=== PATIENT | female | born 1970 | race Caucasian/White ===

== ENCOUNTER → 2016-11-21 | Outpatient (CLI) | payer BC ==
[~2016-11-21] MED LIST: BIRTH CONTROL; CILOXAN 5 ML5 M1 OP; CILOXAN 5 ML5 ML OT; DIOVAN80 MG PO; FLEXERIL10 MG PO; HYDROCODONE BIT1 T11 PO; TOPROL XL25 MG PO; TRAMADOL HCL50 MG PO; VICO10300 PO; VICO75300 PO; WELLBUTRIN75 MG PO; ZOFRAN ODT4 MG SL
[2016-11-21 10:51] LABS: HEMATOCRIT 39.1 % (37.0-47.0); HEMOGLOBIN 12.4 g/dl (12.0-16.0); MEAN CELL VOLUME 93.5 fl (81.0-99.0); RED BLOOD COUNT 4.18 10*6/uL (4.10-5.10)
[2016-11-21 10:52] LABS: MEAN CORPUSCULAR HGB 29.7 pg (27.0-31.0); MEAN CORPUSCULAR HGB CONC 31.7 g/dl (33.0-37.0); MEAN PLATELET VOLUME 8.6 fl (9.6-12.3); RED CELL DISTRI WIDTH 12.4 % (0-14.5)
[2016-11-21 11:25] LABS: ALBUMIN 3.3 gm/dl (3.1-4.5); ALKALINE PHOSPHATASE 51 U/L (45-117); BILIRUBIN, TOTAL 0.3 mg/dl (0.2-1.0); BUN 18 mg/dl (7-24); CARBON DIOXIDE 27 mmol/L (21-32); CHLORIDE 104 mmol/L (98-107); CHOLESTEROL 192 mg/dL (<200); EST GLOM FILT AFRICAN AMERICAN > 60 ml/min; GLUCOSE 98 mg/dL (65-99); HDL CHOLESTEROL 66 mg/dl (40-60); LDL CHOLESTEROL 99 mg/dL (9-159); SGOT/AST 14 IU/L (3-35); SGPT/ALT 17 U/L (12-78); SODIUM 141 mmol/L (136-145); TOTAL PROTEIN 6.7 gm/dL (6.4-8.2); TRIGLYCERIDES 133 mg/dl (<150); VLDL CHOLESTEROL 27 mg/dL (6-40)
== END | disposition home or self-care (01) ==
LOC: LAB 10:28
PROVIDERS: Family Medicine
DX: I10 Essential (primary) hypertension (principal); F41.1 Generalized anxiety disorder; E74.00 Glycogen storage disease, unspecified; E66.9 Obesity, unspecified; E78.00 Pure hypercholesterolemia, unspecified; M19.90 Unspecified osteoarthritis, unspecified site; R63.5 Abnormal weight gain; E55.9 Vitamin D deficiency, unspecified

== ENCOUNTER → 2016-12-10 | Day surgery (SDC) | payer BC ==
[~2016-12-10] VITALS: Ht 167.6 cm; Wt 113.4 kg
[~2016-12-10] MED LIST changes: +AMBIEN10 M1 JT; +CYCLOBENZAPRINE10 MG PO; +DIOVAN160 M2 PO; +ETODOLAC400 M2 PO; +HYDR25T PO; +LEVAQUIN500 M2 PO; +NORCO 10-325 T1 EACH PO; +PROTONIX40 MG PO; +QSYMIA 3.75 MG1 EACH PO
--- NOTE | ~2016-12-10 | O ---
[place], [place] OPERATIVE NOTE NAME: ISABEL PALACIOS UNIT #: [id number] ROOM: DOCTOR: JAIRO AVELAR MD BIRTHDATE: [birth year] DOS: 12/10/2016 PREOPERATIVE DIAGNOSIS: Chronic otitis media with effusion. POSTOPERATIVE DIAGNOSIS: Chronic otitis media with effusion. OPERATION: BMT. SURGEON: Dr. Avelar. ANESTHESIA: General. OPERATIVE FINDINGS AND PROCEDURE: The patient was taken to the operating room for BMT. Following induction of general anesthesia, the patient was positioned supine on the OR table and draped in the standard fashion for ear surgery. The surgical microscope was brought into the operative field. The right ear was examined. Myringotomy was performed. Standard Freddy tympanostomy tube was inserted, and topical Ciprofloxacin drops were instilled. Next, the left ear was examined. Left myringotomy was performed. Standard Freddy tympanostomy tube was inserted, and topical Ciprofloxacin drops were instilled. The patient tolerated the procedure well, was awakened, and transported to PACU in satisfactory condition. JAIRO AVELAR MD CM:OPRECORD:OPERATIVE NOTE [id number] JAIRO AVELAR MD 12/10/16 1309 interface
[2016-12-10 11:46] VITALS: BP 112/60
[2016-12-10 12:45] VITALS: BP 116/62
[2016-12-10 13:00] VITALS: BP 123/61
[2016-12-10 13:15] VITALS: BP 123/61
[2016-12-10 13:18] VITALS: BP 123/61
[2016-12-10 13:30] VITALS: BP 113/64
== END | disposition home or self-care (01) ==
LOC: SDC 12-05 08:45
DX: H65.493 Other chronic nonsuppurative otitis media, bilateral (principal); I10 Essential (primary) hypertension; F41.9 Anxiety disorder, unspecified; F32.9 Major depressive disorder, single episode, unspecified; Z87.01 Personal history of pneumonia (recurrent); Z83.3 Family history of diabetes mellitus; Z80.9 Family history of malignant neoplasm, unspecified

== ENCOUNTER → 2017-07-07 | Outpatient (CLI) | payer BC ==
[2017-07-07 12:09] LABS: BUN 12 mg/dl (7-24); CHLORIDE 102 mmol/L (98-107); CHOLESTEROL 187 mg/dL (<200); CREATININE 0.91 mg/dL (0.55-1.02); POTASSIUM 3.7 mmol/L (3.5-5.1); SODIUM 139 mmol/L (136-145); TRIGLYCERIDES 85 mg/dl (<150); VLDL CHOLESTEROL 17 mg/dL (6-40)
[2017-07-07 12:19] LABS: HDL CHOLESTEROL 62 mg/dl (40-60); LDL CHOLESTEROL 108 mg/dL (9-159)
== END | disposition home or self-care (01) ==
LOC: LAB 11:23
PROVIDERS: Family Medicine
DX: I10 Essential (primary) hypertension (principal)

== ENCOUNTER 2017-08-11 22:31 | Inpatient (IN) | payer BC ==
[~2017-08-11] VITALS: Ht 165.1 cm; Wt 114.9 kg
--- NOTE | ~2017-08-11 | O ---
[place], [place] OPERATIVE NOTE NAME: ISABEL PALACIOS [id number] UNIT #: [id number] ROOM: [id number] DOCTOR: BERRY FULLER MD BIRTHDATE: [birth year] DOS: 08/12/2017 PREOPERATIVE DIAGNOSIS: Acute cholecystitis. POSTOPERATIVE DIAGNOSIS: Acute cholecystitis. PROCEDURE: Laparoscopic cholecystectomy. SURGEON: Berry Fuller MD INFORMATION SECURITY ARCHITECT: DAMIEN. ANESTHESIA: GET. INDICATIONS: This is a 46-year-old lady admitted with abdominal pain and was found to have acute cholecystitis. We decided to take the patient to the operating room for a laparoscopic cholecystectomy. The procedure and its complications were explained to the patient in detail preoperatively. Complications that were discussed included but were not limited to bleeding, infection, hematoma/seroma/abscess formation, prolonged postoperative pain, damage to underlying vital structures, inadvertent injury to the common bile duct, biloma formation and incisional hernia formation. She agreed to proceed. DESCRIPTION OF PROCEDURE: After identifying the patient, the patient was brought to the operating suite and laid in the supine position. After induction of general anesthesia, the parts were painted and draped in the usual sterile fashion and a time-out procedure was called. An incision was made below the umbilicus in a transverse fashion. The skin and subcutaneous tissue were incised in the line of the incision. The fascia was incised vertically and 2 stay sutures with 0 Vicryl were taken on either side. The peritoneum was opened and a 12 mm Elmer port was introduced. A pneumoperitoneum was created. Under direct vision, an epigastric incision of 10 mm and two 5 mm incisions were made in the right upper quadrant and appropriate size ports were introduced. The gallbladder was found to be extremely distended and therefore approximately 80 mL of bile was aspirated in order to better grasp the gallbladder. The gallbladder was then retracted superiorly and laterally. The cystic artery and the cystic duct were meticulously dissected until the critical view of safety was obtained and the triangle of Calot was clearly identified. Thereafter, each of these structures were clipped 3 times and cut between the first and the second clip. The gallbladder was then removed from the bed of the gallbladder and removed from the peritoneal cavity in an EndoCatch bag and sent for histopathological diagnosis. Hemostasis was achieved in the liver bed and saline was used for irrigation. After hemostasis was confirmed, the right upper quadrant and epigastric ports were removed and there was no bleeding seen. The umbilical port was also removed and the pneumoperitoneum was decompressed. Two stay sutures were tied together and additional sutures were taken with 0 Vicryl in order to close the fascial defect. Thereafter, the edges of the skin were infiltrated with 1% plain lidocaine and the edges of the skin were approximated with the help of 4-0 Vicryl in a subcuticular running fashion. Dressings were placed. The patient tolerated the procedure well and was taken to the recovery [place], [place] OPERATIVE NOTE NAME: ISABEL PALACIOS UNIT #: [id number] ROOM: [facility] DOCTOR: BERRY FULLER MD BIRTHDATE: [birth year] room in a stable fashion. Dr. Berry Fuller, the attending surgeon, was present throughout the operating case. Berry Fuller MD CM:OPRECORD:OPERATIVE NOTE [id number] BERRY FULLER MD 08/12/17 1441 interface
--- NOTE | 2017-08-11 09:00 | NUR ---
case mangement visits with patient, patient states she lives at home, is independent in adls and ambulation, patient states she will be going back home when able and denies any home needs
[2017-08-11 22:31] VITALS: BP 140/65
[~2017-08-11 22:31] MED LIST changes: -AMBIEN10 M1 JT; +AMBIEN10 M1 PO
[2017-08-11 22:45] VITALS: BP 140/65
--- NOTE | 2017-08-11 22:59 | NUR ---
PATIENT YELLING AND SCREAMING, HYPERVENTILATING, COMPLAINING OF NUMBNESS.
[2017-08-11 23:00] LABS: HEMATOCRIT 41.7 % (37.0-47.0); HEMOGLOBIN 13.6 g/dl (12.0-16.0); LYMPH # 1.2 10*3/uL (1.3-4.4); LYMPH % 34.6 % (27.0-41.0); MEAN CELL VOLUME 88.7 fl (81.0-99.0); MEAN CORPUSCULAR HGB 28.9 pg (27.0-31.0); MEAN CORPUSCULAR HGB CONC 32.6 g/dl (33.0-37.0); MEAN PLATELET VOLUME 8.8 fl (9.6-12.3); MONO % 0.9 % (3.0-9.0); NEUT # 2.2 10*3/uL (2.3-7.9); NEUT % 64.2 % (47.0-73.0); PLATELET COUNT AUTOMATED 421 10*3/uL (130-400); RED CELL DISTRI WIDTH 12.1 % (0-14.5); WHITE BLOOD COUNT 3.4 10*3/uL (4.8-10.8)
[2017-08-11 23:06] VITALS: BP 118/77
[2017-08-11 23:10] LABS: ACT PARTIAL THROMBO TIME 19.1 SECONDS (20.8-31.5); INTERNATIONAL NORM RATIO 0.9 (2.0-3.5)
[2017-08-11 23:15] LABS: ALKALINE PHOSPHATASE 52 U/L (45-117); BUN 19 mg/dl (7-24); CHLORIDE 101 mmol/L (98-107); SGOT/AST 16 IU/L (3-35); SGPT/ALT 26 U/L (12-78); SODIUM 139 mmol/L (136-145); TOTAL PROTEIN 8.2 gm/dL (6.4-8.2)
[2017-08-11 23:17] LABS: TROPONIN I < 0.015 ng/ml (<0.045)
--- NOTE | 2017-08-11 23:39 | NUR ---
PT MEDICATED PER EMAR. 98% ON 3 L NC. RESP 16 BP. 144/81
[2017-08-11 23:40] VITALS: BP 144/81
[2017-08-12] VITALS (13 sets, daily range): BP systolic 101–153; BP diastolic 46–89
--- NOTE | 2017-08-12 00:33 | NUR ---
PT RATES PAIN 4 OUT OF 10 AFTER NARCOTIC ADM
--- NOTE | 2017-08-12 03:04 | NUR ---
REPORT GIVEN TO RAHUL GARCIA
--- NOTE | 2017-08-12 03:50 | NUR ---
A 46, admitted to , under the services of KAYLEE Daniels DO with a diagnosis of CHEST PAIN IN ADULT AND CHOLELITHIASIS. Chief complaint is CHEST PAIN. Patient arrived via bed from ER. Monitor applied. Initial assessment completed. Vital signs taken and recorded. KAYLEE DANIELS DO notified of admission to the unit. Orders received. See assessment for past medical history, medications and allergies. Patient and/or family oriented to unit. [facility] visitation policy reviewed. Clothing/patient valuable form completed. RAHUL OCHOA
--- NOTE | 2017-08-12 04:12 | NUR ---
PT C/O PAIN. MORPHINE ADMINISTERED VIA IV. WILL MONITOR FOR EFFECTIVENESS.
--- NOTE | 2017-08-12 04:20 | NUR ---
DR. VALDERRAMA NOTIFIED THAT PT MED REC IS UP TO DATE TO BEST OF ABILITY AT THIS TIME.
--- NOTE | 2017-08-12 05:00 | NUR ---
MORPHINE EFFECTIVE AT THIS TIME, PT RESTING IN BED, RESPIRATIONS EASY AND UNLABORED.
[2017-08-12 06:08] LABS: ALBUMIN 3.1 gm/dl (3.1-4.5); CREATININE 1.43 mg/dL (0.55-1.02); PHOSPHOROUS 2.4 mg/dL (2.5-4.9); POTASSIUM 3.2 mmol/L (3.5-5.1)
[2017-08-12 06:10] LABS: TOTAL PROTEIN 6.1 gm/dL (6.4-8.2)
[2017-08-12 06:28] LABS: ACT PARTIAL THROMBO TIME 20.4 SECONDS (20.8-31.5)
--- NOTE | 2017-08-12 06:30 | NUR ---
PT C/O NAUSEA. IV ZOFRAN ADMINISTERED, TOLERATED WELL. WILL MONITOR FOR EFFECTIVENESS.
[2017-08-12 06:44] LABS: MEAN CELL VOLUME 91.3 fl (81.0-99.0); MEAN CORPUSCULAR HGB 29.9 pg (27.0-31.0); MEAN CORPUSCULAR HGB CONC 32.7 g/dl (33.0-37.0); MEAN PLATELET VOLUME 9.2 fl (9.6-12.3); PLATELET COUNT AUTOMATED 337 10*3/uL (130-400); RED BLOOD COUNT 3.68 10*6/uL (4.10-5.10); RED CELL DISTRI WIDTH 12.3 % (0-14.5); WHITE BLOOD COUNT 19.4 10*3/uL (4.8-10.8)
--- NOTE | 2017-08-12 06:45 | NUR ---
PT C/O PAIN AT THIS TIME, PT BEING VERY VOCAL AND CRYING OUT. PT STATES THAT PAIN IS ALL OVER BODY AND THAT SHE NEEDS SOMETHING ELSE TO HELP WITH HER PAIN.
[2017-08-12 06:56] LABS: HEMATOCRIT 33.6 % (37.0-47.0)
[2017-08-12 07:30] LABS: PLATELET SUFFICIENCY NORMAL (NORMAL); TOTAL CELLS COUNTED 100 #CELLS
--- NOTE | 2017-08-12 07:30 | NUR ---
ZOFRAN EFFECTIVE PER PT.
--- NOTE | 2017-08-12 07:44 | NUR ---
CALLED DR CHEEK REGARDING NEW PT CONSULT. ORDER RECIEVED FOR IV DULAUDID. HE STATED HE WILL SEE PT TODAY.
--- NOTE | 2017-08-12 08:00 | NUR ---
PT AWAKE. ASSESSMENT COMPLETE. PT WRITHING IN PAIN AND YELLING. ADMINISTERED IV DILAUDID, ICE CHIPS AND A COLD WASHCLOTH. WILL MONITOR FOR EFFECTIVENESS.
--- NOTE | 2017-08-12 08:57 | NUR ---
PT SLEEPING. RESPS REG/EASY WITH NO DISTRESS NOTED AT THIS TIME.
--- NOTE | 2017-08-12 10:15 | NUR ---
DR CHEEK IN TO SEE PT. INFORMED OF PTS ELEVATED TEMP AND THAT THIS NURSE MEDICATED WITH TYLENOL. WILL RECHECK
--- NOTE | 2017-08-12 10:45 | NUR ---
PTS TEMP 99.4
--- NOTE | 2017-08-12 13:33 | NUR ---
PT BEING TRANSFERRED TO ICU. REPORT GIVEN TO DONNELL GARCIA.
--- NOTE | 2017-08-12 15:20 | NUR ---
PATIENT FROM OR. VSS. PATIENT VERY ANXIOUS. BP 105/62. 96% 3L NC.
--- NOTE | 2017-08-12 17:44 | NUR ---
MEDICATED WITH PRN DILAUDID PER ORDER AND REQUEST FOR ABDOMINAL PAIN RATED AT 10 OUT OF 10.
--- NOTE | 2017-08-12 19:53 | NUR ---
PATIENT C/O ITCHING. MEDICATED WITH ONE TIME DOSE OF BENADRYL. NO SIGNS OF RASH. WILL MONITOR FOR EFFECTIVENESS.
[2017-08-12 20:06] LABS: BILIRUBIN NEGATIVE (NEGATIVE); BLOOD 1+ (NEGATIVE); CLARITY SL CLOUDY (CLEAR); COLOR YELLOW (YELLOW); GLUCOSE TRACE (NEGATIVE); KETONE NEGATIVE (NEGATIVE); LEUKO ESTERASE NEGATIVE (NEGATIVE); NITRITE NEGATIVE (NEGATIVE); UROBILINOGEN 0.2 E.U./dl (0.2-1.0)
[2017-08-12 20:16] LABS: BACTERIA 2+; WBC 0-2 wbc/hpf (0-5)
--- NOTE | 2017-08-12 20:38 | NUR ---
Patient complaints of 8/10 pain to abdomen,legs, back and neck. Medicated with PRN dilaudid as ordered and per pateint request. Patients Spo2 dropped into the 80's after Dilaidid administration. O2 2L applied. Spo2 currently 96%.
--- NOTE | 2017-08-12 20:58 | NUR ---
PATIENT ASLEEP. NO SIGNS OF ITCHING OR PAIN. DILAUDID AND BENADRYL EFFECTIVE.
--- NOTE | 2017-08-12 22:41 | NUR ---
C/O 04/10 ABDOMINAL PAIN. MEDICATED WITH DILAUDID ORDERED.
--- NOTE | 2017-08-12 23:41 | NUR ---
PATIENT ASLEEP. NO SIGNS OF PAIN. DILAUDID EFFECTIVE.
--- NOTE | 2017-08-12 23:50 | NUR ---
24 HR chart check completed.
[2017-08-13] VITALS: BP 100/48
--- NOTE | 2017-08-13 00:49 | NUR ---
C/O 04/10 ABDOMINAL PAIN. MEDICATED WITH DILAUDID ORDERED AND PER PATIENT REQUEST.
--- NOTE | 2017-08-13 01:30 | NUR ---
PATIENT ASLEEP. NO SIGNS OF PAIN. DILAUDID EFFECTIVE.
--- NOTE | 2017-08-13 02:50 | NUR ---
C/O 04/10 ABDOMINAL PAIN. MEDICATED WITH DILAUDID ORDERED AND PER PATIENT REQUEST.
--- NOTE | 2017-08-13 03:15 | NUR ---
PATIENT ASLEEP. NO SIGNS OF PAIN. DILAUDID EFFECTIVE.
[2017-08-13 04:00] VITALS: BP 91/47
--- NOTE | 2017-08-13 05:26 | NUR ---
C/O 8/10 PAIN TO ABDOMEN AND NECK. MEDICATED WITH PRN DILAUDID ORDERED AND PER PATIENT REQUEST.
[2017-08-13 06:13] LABS: ALBUMIN 2.9 gm/dl (3.1-4.5); CHLORIDE 103 mmol/L (98-107); POTASSIUM 3.3 mmol/L (3.5-5.1); SODIUM 137 mmol/L (136-145)
[2017-08-13 06:20] LABS: ALKALINE PHOSPHATASE 37 U/L (45-117); CREATININE 0.96 mg/dL (0.55-1.02); PHOSPHOROUS 2.1 mg/dL (2.5-4.9); SGOT/AST 29 IU/L (3-35); SGPT/ALT 27 U/L (12-78); TOTAL PROTEIN 6.2 gm/dL (6.4-8.2)
[2017-08-13 06:21] LABS: BUN 12 mg/dl (7-24)
--- NOTE | 2017-08-13 06:21 | NUR ---
PATIENT ASLEEP. NO SIGNS OF PAIN. DILAUDID EFFECTIVE.
[2017-08-13 07:55] LABS: HEMATOCRIT 31.1 % (37.0-47.0); HEMOGLOBIN 9.9 g/dl (12.0-16.0); MEAN CELL VOLUME 92.3 fl (81.0-99.0); MEAN CORPUSCULAR HGB 29.4 pg (27.0-31.0); MEAN CORPUSCULAR HGB CONC 31.8 g/dl (33.0-37.0); MEAN PLATELET VOLUME 9.2 fl (9.6-12.3); PLATELET COUNT AUTOMATED 300 10*3/uL (130-400); RED BLOOD COUNT 3.37 10*6/uL (4.10-5.10); RED CELL DISTRI WIDTH 12.6 % (0-14.5); WHITE BLOOD COUNT 20.4 10*3/uL (4.8-10.8)
[2017-08-13 08:00] VITALS: BP 98/59
[2017-08-13 08:29] LABS: PLATELET SUFFICIENCY NORMAL (NORMAL); POLYCHROMASIA SLIGHT; TOTAL CELLS COUNTED 100 #CELLS
--- NOTE | 2017-08-13 09:09 | NUR ---
MEDICATED WITH PRN DILAUDID PER ORDER AND REQUEST.
--- NOTE | 2017-08-13 10:00 | NUR ---
DILAUDID EFFECTIVE. DR. CHEEK HAS ROUNDED.
--- NOTE | 2017-08-13 11:10 | NUR ---
MEDICATED WITH PRN BENADRYL FOR C/O ITCHING.
--- NOTE | 2017-08-13 11:24 | NUR ---
MEDICATED WITH PRN PERCOCET PER ORDER AND REQUEST. DR. QUINTERO HAS ROUNDED.
[2017-08-13 12:00] VITALS: BP 106/52
[2017-08-13 16:00] VITALS: BP 104/56
--- NOTE | 2017-08-13 16:06 | NUR ---
MEDICATED WITH PRN TYLENOL FOR C/O HEADACHE.
--- NOTE | 2017-08-13 19:10 | NUR ---
MEDICATED WITH PRN PERCOCET PER ORDER AND REQUEST.
--- NOTE | 2017-08-13 19:52 | NUR ---
PATIENT LYING IN BED, STATED SHE HURTS ALL OVER, STATED SHE WENT TO [facility] PRIOR TO ADMISSION TO HELP WITH LEGS GOING NUMB AND NECK PAIN. PATIENT STATED THAT THE PERCOCET WASNT HELPING THAT WAS GIVEN AT 1910. PATIENT STATED THAT TORADOL HELPS, WHICH SHE ISNT GETTING. PATIENT ASKED FOR SOMETHING TO HELP HER SLEEP WHICH WILL BE GIVEN AT A LATER TIME. PATIENT LEFT WITH CALL LIGHT IN REACH.
[2017-08-13 20:00] VITALS: BP 105/60
--- NOTE | 2017-08-13 20:49 | NUR ---
PATIENT COMPLAINS OF NAUSEA AND HEADACHE. TYLENOL AND ZOFRAN GIVEN. WILL MONITOR AND REASSESS.
--- NOTE | 2017-08-13 22:30 | NUR ---
PATIENT IN SEVERE PAIN, RATES 10/10, STATES ITS HARD FOR HER TO MOVE DUE TO LAP CHOLY. DILAUDID WAS GIVEN. WILL MONITOR AND REASSESS.
--- NOTE | 2017-08-13 23:45 | NUR ---
PATIENT RESTING, NO SIGNS OF DISTRESS. DILAUDID EFFECTIVE.
[2017-08-14] VITALS: BP 97/51
[2017-08-14 04:00] VITALS: BP 127/71
--- NOTE | 2017-08-14 04:00 | NUR ---
PATIENT AWOKE IN SEVERE PAIN, STATED THE PAIN MEDS MUST OF WORE OFF. PATIENT HAS COMPLAINT OF BACK PAIN AND SURGICAL PAIN. PERCOCET WAS GIVEN. WILL MONITOR AND REASSESS.
--- NOTE | 2017-08-14 06:10 | NUR ---
PATIENT SCREAMING OUT IN PAIN, STATES HER HEAD, STOMACH, AND BACK ARE HURTING. RATES 10/10. DILAUDID GIVEN, WILL MONITOR AND REASSESS. PERCOCET NOT EFFECTIVE FOR PAIN.
[2017-08-14 06:13] LABS: BASO % 0.1 % (0.0-1.0); EOS # 0.4 10*3/uL (0.0-0.4); EOS % 4.2 % (1.0-4.0); HEMATOCRIT 30.5 % (37.0-47.0); HEMOGLOBIN 9.5 g/dl (12.0-16.0); LYMPH # 1.5 10*3/uL (1.3-4.4); MEAN CELL VOLUME 93.6 fl (81.0-99.0); MEAN CORPUSCULAR HGB 29.1 pg (27.0-31.0); MEAN CORPUSCULAR HGB CONC 31.1 g/dl (33.0-37.0); MEAN PLATELET VOLUME 8.8 fl (9.6-12.3); MONO # 0.7 10*3/uL (0.1-1.0); MONO % 6.6 % (3.0-9.0); NEUT # 7.3 10*3/uL (2.3-7.9); NEUT % 73.8 % (47.0-73.0); PLATELET COUNT AUTOMATED 236 10*3/uL (130-400); RED BLOOD COUNT 3.26 10*6/uL (4.10-5.10); RED CELL DISTRI WIDTH 12.7 % (0-14.5); WHITE BLOOD COUNT 9.9 10*3/uL (4.8-10.8)
[2017-08-14 06:26] LABS: ALBUMIN 2.6 gm/dl (3.1-4.5); ALKALINE PHOSPHATASE 34 U/L (45-117); BUN 8 mg/dl (7-24); CHLORIDE 108 mmol/L (98-107); CREATININE 0.76 mg/dL (0.55-1.02); PHOSPHOROUS 1.8 mg/dL (2.5-4.9); POTASSIUM 3.7 mmol/L (3.5-5.1); SGOT/AST 22 IU/L (3-35); SGPT/ALT 25 U/L (12-78); SODIUM 142 mmol/L (136-145); TOTAL PROTEIN 5.7 gm/dL (6.4-8.2)
[2017-08-14 08:00] VITALS: BP 118/67
--- NOTE | 2017-08-14 09:32 | NUR ---
IV to RA leaking at site. dc'd. in, discharge recommended.
--- NOTE | 2017-08-14 10:44 | NUR ---
Awake and alert. Up and about in room . Tylenol effective to ease headache. IV site to RA edematous , painful and leaking on start of abx. Pt. stated she notified previous shift of pain at site. forearm is firm and painful. IV dc'd. Not re-started at this time as discharge is pending. Pt. is released per surgeon w/ no follow up required.
[2017-08-14] MEDS ORDERED: Percocet 325 MG1 TAB PO (10:59)
[2017-08-14] MEDS ORDERED: CIPRO500 MG PO (10:59)
[2017-08-14] MEDS ORDERED: FLAGYL500 MG PO (10:59)
--- NOTE | 2017-08-14 11:59 | NUR ---
PT MEDICATED WITH TYLENOL 650MG PO FOR C/O HEADACHE PAIN.
--- NOTE | 2017-08-14 12:07 | NUR ---
Dr. Perez in order for discharge recieved. Discharge instruction given, Voiced understanding. Discharged to home.
== END 2017-08-14 12:07 | disposition home or self-care (01) | DRG 853 ==
LOC: ED 22:31 → ICCU 08-12 01:56 → EDHOLD 08-12 01:56 → 5E 08-12 02:54 → ICCU 08-12 14:55
PROVIDERS: Emergency Medicine Emergency Medical Services; Family Medicine; Internal Medicine Nephrology; Surgery; ADMIT Internal Medicine
PROC: 0FT44ZZ Resection of Gallbladder, Percutaneous Endoscopic Approach (ICD-10-PCS; principal; 2017-08-12)
DX: A41.9 Sepsis, unspecified organism (principal); J96.00 Acute respiratory failure, unspecified whether with hypoxia or hypercapnia; N17.0 Acute kidney failure with tubular necrosis; K80.00 Calculus of gallbladder with acute cholecystitis without obstruction; E44.0 Moderate protein-calorie malnutrition; R65.20 Severe sepsis without septic shock; G89.29 Other chronic pain; M54.9 Dorsalgia, unspecified; E87.6 Hypokalemia; R73.9 Hyperglycemia, unspecified; I10 Essential (primary) hypertension; E66.01 Morbid (severe) obesity due to excess calories; E83.39 Other disorders of phosphorus metabolism; Z83.3 Family history of diabetes mellitus; Z79.899 Other long term (current) drug therapy; Z68.38 Body mass index [BMI] 38.0-38.9, adult

== ENCOUNTER 2017-08-18 00:41 | Inpatient (IN) | payer BC ==
[~2017-08-18] VITALS: Ht 165.1 cm; Wt 111.8 kg
[~2017-08-18 00:41] MED LIST changes: +CIPRO500 MG PO; +FLAGYL500 MG PO; +Percocet 325 MG1 TAB PO
[2017-08-18 00:47] VITALS: BP 158/118
[2017-08-18 01:19] LABS: BASO % 0.4 % (0.0-1.0); EOS # 0.1 10*3/uL (0.0-0.4); EOS % 1.4 % (1.0-4.0); HEMATOCRIT 38.1 % (37.0-47.0); HEMOGLOBIN 12.3 g/dl (12.0-16.0); LYMPH # 1.5 10*3/uL (1.3-4.4); LYMPH % 14.5 % (27.0-41.0); MEAN CELL VOLUME 89.2 fl (81.0-99.0); MEAN CORPUSCULAR HGB 28.8 pg (27.0-31.0); MEAN CORPUSCULAR HGB CONC 32.3 g/dl (33.0-37.0); MEAN PLATELET VOLUME 8.3 fl (9.6-12.3); MONO # 0.6 10*3/uL (0.1-1.0); MONO % 6.4 % (3.0-9.0); NEUT # 7.7 10*3/uL (2.3-7.9); NEUT % 76.9 % (47.0-73.0); PLATELET COUNT AUTOMATED 411 10*3/uL (130-400); RED BLOOD COUNT 4.27 10*6/uL (4.10-5.10); RED CELL DISTRI WIDTH 12.6 % (0-14.5)
[2017-08-18 01:38] LABS: ALBUMIN 3.4 gm/dl (3.1-4.5); ALKALINE PHOSPHATASE 82 U/L (45-117); BUN 9 mg/dl (7-24); CHLORIDE 99 mmol/L (98-107); CREATININE 0.96 mg/dL (0.55-1.02); LIPASE 69 U/L (73-393); POTASSIUM 3.7 mmol/L (3.5-5.1); SGOT/AST 92 IU/L (3-35); SGPT/ALT 82 U/L (12-78); SODIUM 138 mmol/L (136-145); TOTAL PROTEIN 7.3 gm/dL (6.4-8.2)
[2017-08-18 03:00] VITALS: BP 139/78
--- NOTE | 2017-08-18 03:00 | NUR ---
A 46, admitted to 4E, under the services of MARTIN Cortez DO with a diagnosis of ELEVATED LFTs, S/P CHOLECYSTECTOMY. Chief complaint is ABDOMINAL PAIN. Patient arrived via wheel chair from ER. Monitor applied. Initial assessment completed. Vital signs taken and recorded. MARTIN CORTEZ DO notified of admission to the unit. Orders received. See assessment for past medical history, medications and allergies. Patient and/or family oriented to unit. [facility] visitation policy reviewed. Clothing/patient valuable form completed. AUDRA VINCENT
--- NOTE | 2017-08-18 04:14 | NUR ---
PHOTOS TAKEN OF PATIENT'S 4 SURGICAL INCISIONS AT THIS TIME.
[2017-08-18 05:59] LABS: BILIRUBIN NEGATIVE (NEGATIVE); BLOOD TRACE-INTACT (NEGATIVE); CLARITY CLEAR (CLEAR); COLOR YELLOW (YELLOW); GLUCOSE NEGATIVE (NEGATIVE); KETONE NEGATIVE (NEGATIVE); LEUKO ESTERASE NEGATIVE (NEGATIVE); NITRITE NEGATIVE (NEGATIVE); SPECIFIC GRAVITY <= 1.005 (1.005-1.030); UROBILINOGEN 0.2 E.U./dl (0.2-1.0)
--- NOTE | 2017-08-18 06:39 | NUR ---
SPOKE TO AT THIS TIME REGARDING PATIENT'S C/O HEADACHE. DISCUSSED PATIENT'S LFTs AND LABS PERTAINING TO KIDNEY FUNCTION. INSTRUCTED TO GIVE ONE TIME DOSE OF IV TORADOL 30 MG.
[2017-08-18 07:16] LABS: CALCIUM OXALATE CRYSTALS TRACE
--- NOTE | 2017-08-18 07:40 | NUR ---
PT RESTING IN BED. C/O HEADACHE RATES PAIN 9 ON PAIN SCALE 0-10. MEDICATED WITH TORADOL IV PER ORDER, SEE EMAR. IVF INFUSING WITH NO PROBLEM. ALSO C/O NAUSEA, MEDICATED WITH ZOFRAN IV PER PRN ORDER, SEE EMAR. CALL LIGHT IN REACH. SEE SHIFT ASSESSMENT.
[2017-08-18 07:41] LABS: BASO % 0.5 % (0.0-1.0); EOS # 0.1 10*3/uL (0.0-0.4); EOS % 1.2 % (1.0-4.0); HEMOGLOBIN 10.8 g/dl (12.0-16.0); LYMPH # 1.7 10*3/uL (1.3-4.4); LYMPH % 19.9 % (27.0-41.0); MEAN CELL VOLUME 89.9 fl (81.0-99.0); MEAN CORPUSCULAR HGB 28.6 pg (27.0-31.0); MEAN CORPUSCULAR HGB CONC 31.8 g/dl (33.0-37.0); MEAN PLATELET VOLUME 8.5 fl (9.6-12.3); MONO # 0.6 10*3/uL (0.1-1.0); MONO % 7.4 % (3.0-9.0); NEUT # 5.9 10*3/uL (2.3-7.9); NEUT % 70.6 % (47.0-73.0); PLATELET COUNT AUTOMATED 372 10*3/uL (130-400); RED BLOOD COUNT 3.78 10*6/uL (4.10-5.10); RED CELL DISTRI WIDTH 12.8 % (0-14.5); WHITE BLOOD COUNT 8.4 10*3/uL (4.8-10.8)
[2017-08-18 07:57] LABS: ACT PARTIAL THROMBO TIME 23.2 SECONDS (20.8-31.5)
[2017-08-18 08:00] VITALS: BP 127/78
[2017-08-18 08:24] LABS: ALKALINE PHOSPHATASE 74 U/L (45-117); BUN 9 mg/dl (7-24); CHLORIDE 102 mmol/L (98-107); CHOLESTEROL 138 mg/dL (<200); CREATININE 0.88 mg/dL (0.55-1.02); HDL CHOLESTEROL 58 mg/dl (40-60); LDL CHOLESTEROL 67 mg/dL (9-159); POTASSIUM 3.4 mmol/L (3.5-5.1); SGOT/AST 83 IU/L (3-35); SGPT/ALT 73 U/L (12-78); SODIUM 140 mmol/L (136-145); TOTAL PROTEIN 6.4 gm/dL (6.4-8.2); TRIGLYCERIDES 65 mg/dl (<150); VLDL CHOLESTEROL 13 mg/dL (6-40)
--- NOTE | 2017-08-18 08:30 | NUR ---
RESTING IN BED WITH EYES CLOSED. RESP-EASY AND REGULAR. MEDICATION SEEMS TO BE EFFECTIVE. CALL LIGHT IN REACH.
[2017-08-18 08:32] LABS: THYROID STIM HORMONE (HS) 0.921 uIU/ml (0.358-4.75)
--- NOTE | 2017-08-18 08:40 | NUR ---
DR. CHEEK CALLED AWARE OF CONSULT. FROM HIS STANDPOINT HE ISN'T GOING TO DO ANYTHING. OK TO EAT AND DRINK REGULAR DIET.
--- NOTE | 2017-08-18 08:44 | NUR ---
DR. FRANK CALLED AWARE OF DR. CHEEK RECOMMENDATIONS.
[2017-08-18 09:00] LABS: VITAMIN D, 25-HYDROXY 46.9 ng/mL (30-100)
--- NOTE | 2017-08-18 09:00 | NUR ---
Certified Ophthalmic Medical Technician in to talk to patient. Patient states lives at home with family. There are few steps in the home. Physician: cedrick Pharmacy: [facility] Home health services: none Patient's level of ADLs: INDEPENDENT Patient has working utilities: all working DME: none Follow-up physician's appointment after d/c: will be made by hospitalist nurse director upon discharge Does patient want to access PORTAL?: no Discharge plan discussed with patient, patient lives at home, was recently in the hospital and had surgery, patient states she gets around fine, she stated she would be going back home when able and denies any home needs. FABRICIO BAUMANN
--- NOTE | 2017-08-18 10:00 | NUR ---
RESTING IN BED. RESP-EASY AND REGULAR. NO C/O AT THIS TIME. DR. MARAVILLA IN TO SEE PT. CALL LIGHT IN REACH.
[2017-08-18 12:00] VITALS: BP 124/71
--- NOTE | 2017-08-18 12:45 | NUR ---
PT C/O NECK PAIN, RATES PAIN 10 ON PAIN SCALE 0-10. MEDICATED WITH ULTRAM PO PER ROUTINE ORDER, SEE EMAR. CALL LIGHT IN REACH.
--- NOTE | 2017-08-18 13:30 | NUR ---
PT RESTING IN BED. STATES MEDICATION HELPS SOME. CALL LIGHT IN [facility].
--- NOTE | 2017-08-18 15:34 | NUR ---
ISABEL PALACIOS [id number] Please refer to the physician's history and physical for past medical history, comorbid conditions, and allergies. Diagnosis: ELEVTED LFT'S S/P CHOLECYSTECTOMY Eliceo Score: 19,AT RISK WOUND DESCRIPTIONS: Location of the wound: umbilicus Type of wound: surgical Thickness: Partial Size: 0.2cm x 2.4cm x <0.1cm Tunneling: none Undermining: none Sinus Tract: none Presence of Exudate: none Amount: None Color: Red Odor: None Periwound Skin Appearance: Normal Wound edges: closed Pain (associated with wound): none at time of assessment How does patient state this happened? pt stated had surgery last week by Dr. Fuller Location of the wound: middle abdomen Type of wound: surgical Thickness: Partial Size: 0.1cm x 1.8cm x <0.1cm Tunneling: none Undermining: none Sinus Tract: none Presence of Exudate: none Amount: None Color: Red Odor: None Periwound Skin Appearance: Normal Wound edges: closed Pain (associated with wound): none at time of assessment How does patient state this happened? pt stated had surgery last week by Dr. Fuller Location of the wound: right proximal abdomen Type of wound: surgical Thickness: Partial Size: 0.5cm x 0.3cm x <0.1cm Tunneling: none Undermining: none Sinus Tract: none Presence of Exudate: none Amount: None Color: Red Odor: None Periwound Skin Appearance: Normal Wound edges: closed Pain (associated with wound): none at time of assessment How does patient state this happened? pt stated had surgery last week by Dr. Fuller Location of the wound: right distal abdomen Type of wound: surgical Thickness: Partial Size: 0.5cm x 0.1cm x <0.1cm Tunneling: none Undermining: none Sinus Tract: none Presence of Exudate: none Amount: None Color: Red Odor: None Periwound Skin Appearance: Normal Wound edges: closed Pain (associated with wound): none at time of assessment How does patient state this happened? pt stated had surgery last week by Dr. Fuller Surface the patient is resting on: Position Pro SKIN PREVENTION RECOMMENDATION: 1. Pressure redistribution support surface as appropriate 2. Elevate heels 3. Remove boots/TEDS every shift and reapply 4. Head of bed 30 degrees as tolerated 5. Assess nutrition and hydration 6. Manage moisture 7. Avoid the use of containment devices while in bed 8. Use absorptive products on surfaces limit layers of linens on bed 9. Turn and reposition every 1-2 hours in bed and every 1 hour in chair as tolerated 10. Weight shifts every 15 minutes while up in chair 11. Offloading with pillows or device to keep heels elevated off bed 12. Monitor skin at least every shift 13. Inspect under medical devices twice a day WOUND TREATMENT RECOMMENDATIONS: patient stated she was told to shower and leave areas open to air.
[2017-08-18 16:00] VITALS: BP 108/78
[2017-08-18] MEDS ORDERED: ZOFRAN ODT4 MG SL (16:20)
[2017-08-18] MEDS ORDERED: NORCO 5-325 TA1 EACH PO (16:20)
--- NOTE | 2017-08-18 16:46 | NUR ---
CALLED DR. FRANK MADE AWARE PT REQUESTING SOMETHING FOR PAIN BEFORE SHE LEAVES. HE WILL ORDER SOMETHING.
--- NOTE | 2017-08-18 17:08 | NUR ---
PT C/O ABDOMINAL PAIN, RATES PAIN 8 ON PAIN SCALE 0-10. MEDICATED WITH NORCO PO PER PRN ORDER, SE EEMAR. CALL LIGHT IN REACH.
--- NOTE | 2017-08-18 17:25 | NUR ---
PT ESCORTED VIA WHEELCHAIR FOR DISCHARGE. HEPLOCK REMOVED 2X2 APPLIED. Discharge instructions reviewed with patient/family. Patient receptive and verbalizes understanding. Follow-up care arranged. Written instructions given to patient/family. TAY TITUS
== END 2017-08-18 17:31 | disposition home or self-care (01) | DRG 392 ==
LOC: ED 00:41 → EDHOLD 02:17 → 4E 02:25
PROVIDERS: Internal Medicine; Physician Assistant; ADMIT Emergency Medicine
DX: R10.9 Unspecified abdominal pain (principal); E44.0 Moderate protein-calorie malnutrition; F32.9 Major depressive disorder, single episode, unspecified; F41.9 Anxiety disorder, unspecified; R74.0 Nonspecific elevation of levels of transaminase and lactic acid dehydrogenase [LDH]; R00.0 Tachycardia, unspecified; I10 Essential (primary) hypertension; R11.2 Nausea with vomiting, unspecified; K21.9 Gastro-esophageal reflux disease without esophagitis; G89.29 Other chronic pain; M54.9 Dorsalgia, unspecified; Z83.3 Family history of diabetes mellitus; Z90.49 Acquired absence of other specified parts of digestive tract; Z79.899 Other long term (current) drug therapy; Z98.890 Other specified postprocedural states; Z68.39 Body mass index [BMI] 39.0-39.9, adult

== ENCOUNTER → 2023-05-14 | Day surgery (SDC) | payer OTHER ==
[~2023-05-14] VITALS: Ht 167.6 cm; Wt 113.4 kg
[~2023-05-14] MED LIST changes: +ALLERGY RELIEF10 M2 PO; +BUSPAR5 MG PO; +CYMBALTA60 MG PO; +LOSARTAN POTASS50 M1 PO; +METFORMIN HYD1000 MG PO; +NORCO 5-325 TA1 EACH PO; +POTASSIUM CHLO10 ME4 PO; +POTASSIUM CHLO20 ME3 PO
[2023-05-14 11:00] VITALS: BP 154/91
[2023-05-14 11:43] VITALS: BP 118/63
[2023-05-14 11:58] VITALS: BP 126/74
[2023-05-14 12:13] VITALS: BP 139/83
[2023-05-14 12:28] VITALS: BP 143/80
[2023-05-14 12:43] VITALS: BP 144/86
== END ==
LOC: SDC 04-25 12:30
PROVIDERS: ATTEND Specialist
DX: M26.609 Unspecified temporomandibular joint disorder, unspecified side (principal); H83.2X2 Labyrinthine dysfunction, left ear; H72.92 Unspecified perforation of tympanic membrane, left ear; I10 Essential (primary) hypertension; E11.9 Type 2 diabetes mellitus without complications; F41.9 Anxiety disorder, unspecified; F32.A Depression, unspecified; Z90.710 Acquired absence of both cervix and uterus; Z90.49 Acquired absence of other specified parts of digestive tract; Z98.890 Other specified postprocedural states; Z79.899 Other long term (current) drug therapy